=== PATIENT | male | born 1990 | race Hispanic/Latino ===

== ENCOUNTER 2017-12-03 14:52 | Emergency (ER) | payer SELFPAY ==
[2017-12-03] MEDS ORDERED: Bacitracin Zinc 1 Packet ONE (15:07)
== END 2017-12-03 15:10 | disposition home or self-care (01) ==
LOC: BURERS 14:52
DX: S50.811A Abrasion of right forearm, initial encounter (principal); X58.XXXA Exposure to other specified factors, initial encounter
CPT/HCPCS: 99283